=== PATIENT | male | born 2000 | race Native Hawaiian/Other Pacific Islander ===

== ENCOUNTER 2022-01-31 07:49 | Outpatient (CLI) | payer OTHER, SELFPAY ==
--- OUTSIDE RECORDS SUMMARY | 2022-01-31 07:52 | XMS_ITS | Clinical Summary ---
:2000 Author Organization [facility] Address [address] [place] [address] Care Team Providers Name Role Phone Unavailable Primary Care Provider Unavailable Source Comments Patient records contain information from all sites at [facility]. For routine questions regarding patient records, call [phone] during business hours, M-F 8:00 AM - 5:00 PM Central Time. Record requests for emergency care only can be directed to [phone] at any time.[facility] Immunizations Name Administration Dates Next Due SARS-COV-2 (COVID-19) - MODERNA 05/28/2020 Social History Tobacco Use Types Packs/Day Years Used Date Smoking Tobacco: Never Assessed Sex Assigned at Date Recorded Not on file Plan of Treatment Health Maintenance Due Date Last Done Comments HIV Screening 2000 Hepatitis C Screening 2000 Depression Screening (Annual 02/26/2021 PHQ-2) DTaP,Tdap,and Td Vaccines (7 08/15/2021 08/16/2011, 004, - Td or Tdap) 07/17/2000, Additional history exists Influenza Vaccine (#1) 2021 12/23/2019, 12/23/2019, 11/18/2014, Additional history exists COVID-19 Vaccine (2 - 01/13/2022 01/13/2022, 05/28/2020 Moderna series) Hepatitis B Vaccines Completed 04/20/2000, 2000, 2000 Pneumococcal vaccine (0-64 Aged Out 04/20/2000, 0, No longer eligible years) 2000, Additional based on patient's age history exists to complete this topic HPV Vaccines Completed 02/04/2014, 01/05/2014, 09/03/2013, Additional history exists Meningococcal Vaccine Completed 01/09/2017, 07/14/2013, 07/14/2013
--- OUTSIDE RECORDS SUMMARY | 2022-01-31 07:52 | XMS_ITS | Encounter Summary ---
:2000 Author Organization [facility] Address [address] [place] [address] Care Team Providers Name Role Phone Unavailable Primary Care Provider Unavailable Reason for Referral Specialty Diagnoses / Procedures Referred By Contact Refer red To Contact [facility] [address] [place] [phone] Referral ID Status Reason Start Date Expiration Date Visits Requ ested Visits Authorized Reason for Visit Appointment Request (Routine) - Closed Specialty Diagnoses / Procedures Referred By Contact Refer red To Contact Family Medicine Referral ID Status Reason Start Date Expiration Date Visits Requ ested Visits Authorized [id number] Closed 05/25/2020 05/25/2021 1 1 Encounter Details Date Type Department Care Team Description 05/28/2020 Immunization Department of [facility] For COVID-19 Medicine, [facility] Immunization [facility], in [facility] (Prim hanna Dx) [place] [address] [place] [phone] Social History Tobacco Use Types Packs/Day Years Used Date Smoking Tobacco: Never Assessed Sex Assigned at Date Recorded Not on file documented as of this encounter Plan of Treatment Scheduled Referrals Name Type Priority Associated Diagnoses Order S chedule Covid immunization Outpatient Referral Routine Encounter For E xpected: office visit COVID-19 Vaccine 06/25/2020, Subsequent; 28 days Immunization Expires: 05/29/2023 documented as of this encounter Visit Diagnoses Diagnosis Encounter For COVID-19 Vaccine Immunizat ion - Primary documented in this encounter
[2022-01-31 10:44] LABS: Glucose* 99 mg/dL (60-115)
== END 2022-01-31 07:50 | disposition home or self-care (01) ==
LOC: NFLDREF 07:50
PROVIDERS: PCP Family Medicine; Visit Provider Family Medicine
DX: Z13.1 Encounter for screening for diabetes mellitus (principal)
CPT/HCPCS: 82947